=== PATIENT | female | born 1990 | race African-American/Black ===

== ENCOUNTER 2022-10-06 20:19 | Emergency (ER) | payer OTHER ==
[~2022-10-06] VITALS: Ht 162.6 cm; Wt 96.0 kg
[2022-10-06 20:26] VITALS: BP 122/79
[2022-10-06 22:12] LABS: BASOPHILS % 0.8 % (0.0-2.0); EOSINOPHILS % 0.5 % (0.0-5.0); HEMATOCRIT. 35.7 % (36.0-48.0); HEMOGLOBIN. 12.2 g/dL (12.0-16.0); LYMPHOCYTES % 30.7 % (20.0-50.0); MEAN CORPUSCULAR HEMOGLOBIN 30.6 pg (28.0-32.0); MEAN CORPUSCULAR VOLUME 89.4 fL (81.0-99.0); MEAN PLATELET VOLUME 7.9 fl (7.4-10.4); MONOCYTES % 10.5 % (2.0-8.0); NEUTROPHILS % 57.5 % (40.0-76.0); PLATELET 354 x1000/uL (130-400); RED CELL DISTRIBUTION WIDTH 18.1 % (11.6-14.6)
[2022-10-06 22:18] LABS: HCG SCREEN NEGATIVE
[2022-10-06 22:19] LABS: CHLORIDE 105 mEq/L (98-107)
[2022-10-06] MEDS ORDERED: POTA-204 MT (22:21)
[2022-10-06 22:29] LABS: CREATINE KINASE 326 IU/L (26-192); ETHANOL BLOOD < 10 mg/dL
[2022-10-06] MEDS ORDERED: POTASSIUM CHLORIDE 20MEQ TABLET SR PO NR (22:30)
== END 2022-10-06 23:55 | disposition home or self-care (01) ==
LOC: ER 20:19
DX: F41.9 Anxiety disorder, unspecified (principal); E87.6 Hypokalemia; J45.909 Unspecified asthma, uncomplicated; E11.9 Type 2 diabetes mellitus without complications; Z32.02 Encounter for pregnancy test, result negative; Z79.899 Other long term (current) drug therapy
CPT/HCPCS: 36415; 80053; 80307; 80320; 80329; 82140; 82550; 84703; 85025; 99283; G0480

== ENCOUNTER 2022-10-06 23:28 | Emergency (ER) | payer OTHER ==
[~2022-10-06 23:28] MED LIST: POTA-204 MT
== END 2022-10-07 06:01 | disposition home or self-care (01) ==
LOC: ER 23:28
DX: Z00.00 Encounter for general adult medical examination without abnormal findings (principal); J45.909 Unspecified asthma, uncomplicated; E11.9 Type 2 diabetes mellitus without complications
CPT/HCPCS: 99281